=== PATIENT | male | born 1980 ===

== ENCOUNTER 2018-04-27 11:49 | Emergency (ER) | payer MEDICAID ==
[2018-04-27] MEDS ORDERED: HALOPERIDOL LACT 5 MG/ML INJ IM ONE (11:58)
[2018-04-27] MEDS ORDERED: LORazepam 2 MG/ML INJ IM ONE (11:59)
[2018-04-27] MEDS ORDERED: NS 1,000 ML IV ONE (12:00)
--- NOTE | 2018-04-27 12:04 | EDPHY ---
H & P Source: Patient, Police Exam Limitations: No limitations - Medical/Surgical History Hx Asthma: No Hx Chronic Respiratory Disease: No Hx Diabetes: No Hx Cardiac Disease: No Hx Renal Disease: No Hx Cirrhosis: No Hx Alcoholism: No - Family History Significant Family History: No pertinent family hx - Social History Smoking Status: Current some day smoker Alcohol Use: Other (denies) Drug Use: Other Time Seen by Provider: 04/27/18 12:00 HPI/ROS: CHIEF COMPLAINT: Combative, manic HISTORY OF PRESENT ILLNESS: The patient is a 38-year-old man who police found walking in and out of traffic, taking off his clothes yelling at people in comprehensively and diaphoretic. He reported to paramedics that he had a history of bipolar. No other health conditions. Did not answer when asked about drugs and alcohol. He was given 260 mg IM ketamine for combativeness by EMS. REVIEW OF SYSTEMS: Unable to obtain secondary to condition EXAM: GENERAL: Patient is combative and restrained HEAD: Spit mask in place, Atraumatic, normocephalic. EYES: Pupils equal round and reactive to light, sclera anicteric, conjunctiva are normal. ENT: nares patent, oropharynx clear without exudates. Slightly dry mucous membranes. NECK: Normal range of motion, supple without lymphadenopathy or JVD. LUNGS: Breath sounds clear to auscultation bilaterally and equal. No wheezes rales or rhonchi. HEART: Slightly tachycardic without murmurs, rubs or gallops. ABDOMEN: Soft, nontender, normoactive bowel sounds. No guarding, no rebound. No masses appreciated. BACK: No CVA tenderness, no spinal tenderness, step-offs or deformities EXTREMITIES: Normal range of motion, no pitting or edema. No clubbing or cyanosis. Agitated and increased movement NEUROLOGICAL: Cranial nerves II through XII grossly intact. Normal speech but minimal, moaning. 5/5 strength, normal movement in all extremities, normal sensation PSYCH: Agitated, sedated, restrained SKIN: Warm, dry, normal turgor, no visible rashes or lesions. Old abrasions on chest in knees healing no longer diaphoretic (Gonzalez William) Constitutional: Initial Vital Signs Heart Rate 133 H 04/27/18 12:00 Respiratory Rate 22 H 04/27/18 12:00 Blood Pressure 153/96 H 04/27/18 12:00 O2 Sat (%) 96 04/27/18 12:00 O2 Delivery Mode Room Air O2 (L/minute) 2 Allergies/Adverse Reactions: No Known Allergies Allergy (Unverified 04/27/18 12:40) Medical Decision Making ED Course/Re-evaluation: 7:20 a.m.- The patient has been stable during my shift. His urine toxicology was positive for methamphetamine at approximately 1:00 a.m.. This will delay his evaluation. (Aundrea De La Torre) [id number]: Patient has been accepted at [facility]. EMTALA filled out. Appropriate Transfer set up. (Isac Matta) 4:55 p.m. The patient has been evaluated by Mental Health. They plan to admit to a psychiatric facility. (Gonzalez William) Differential Diagnosis: Partial list of the Differential diagnosis considered include but were not limited to; polysubstance abuse, psychosis, schizophrenia, bipolar and although unlikely based on the history and physical exam, I also considered infection, trauma. (Gonzalez William) Other Provider: I assumed care of this patient at 7:[address] De La Torre. He has been sleeping throughout most of my shift but when awake has been cooperative in stable. At 3:00 p.m. His mental health evaluation has just begun. His care will be transferred to Dr. William at 3:00 p.m.. (Preethi Borja) - Data Points Laboratory Results: Laboratory Results 04/27/18 12:00 04/27/18 12:00 Medications Given: Discontinued Medications Haloperidol Lactate (Haldol Injection) 10 mg IM EDNOW ONE Stop: 04/27/18 11:59 Last Admin: 04/27/18 12:05 Dose: 10 mg Sodium Chloride (Ns) 1,000 mls @ 0 mls/hr IV EDNOW ONE; Wide Open PRN Reason: Protocol Stop: 04/27/18 12:01 Last Admin: 04/27/18 12:04 Dose: 1,000 mls Lorazepam (Ativan Injection) 2 mg IM EDNOW ONE Stop: 04/27/18 12:00 Last Admin: 04/27/18 12:05 Dose: 2 mg Departure - Departure Disposition: Other Psych, Not [facility] Clinical Impression: Bipolar 1 disorder, Polysubstance abuse Condition: Fair Referrals: Patient,NotPresent [Primary Care Provider] - As per Instructions
[2018-04-27 12:16] LABS: PLATELET COUNT 512 10^3/uL (150-400)
[2018-04-29 10:05] VITALS: BP 96/68
== END 2018-04-29 10:11 ==
LOC: EDUNIT#
DX: F31.9 Bipolar disorder, unspecified (principal); F19.10 Other psychoactive substance abuse, uncomplicated; E86.9 Volume depletion, unspecified; F17.200 Nicotine dependence, unspecified, uncomplicated
CPT/HCPCS: 80305; 80307; G0480